=== PATIENT | female | born 1970 | race Caucasian/White ===

== ENCOUNTER 2016-12-18 11:43 | Emergency (ER) | payer MEDICAID ==
[2016-12-18 11:51] VITALS: BMI 34.5
[2016-12-18 11:54] VITALS: BP 130/85; PULSE 78; RESP 19; TEMP 98; O2SAT 98
--- NOTE | 2016-12-18 12:18 | ED PDOC ---
Arrival/HPI - General Chief Complaint: Psychiatric Evaluation Time Seen by Provider: 12/18/16 11:51 Historian: Patient - History of Present Illness Narrative History of Present Illness (Text): 12/18/16 12:13 A 46 year old female, whose past medical history includes depression with previous admissions for psych, presents to the emergency department complaining of depression. Patient reports she was in a verbal altercation with her family today. She admits to feeling depressed but denies any physical complaints. Patient denies any fever, chills, nausea, vomiting, abdominal pain, chest pain, shortness of breath, suicidal ideation, homicidal ideation, auditory or visual hallucination or any other complaints. Patient reports she has a scheduled appointment with her psychologist tomorrow. Time/Duration: Prior to Arrival Symptom Course: Unchanged Quality: Other Context: Home Past Medical History - Provider Review Nursing Documentation Reviewed: Yes - Infectious Disease Hx of Infectious Diseases: None - Cardiac Hx Cardiac Disorders: Yes - Pulmonary Hx Respiratory Disorders: No - Neurological Hx Neurological Disorder: No - HEENT Hx HEENT Disorder: No - Renal Hx Renal Disorder: No - Endocrine/Metabolic Hx Endocrine Disorders: No - Hematological/Oncological Hx Blood Disorders: No - Integumentary Hx Dermatological Disorder: No - Musculoskeletal/Rheumatological Hx Musculoskeletal Disorders: No - Gastrointestinal Hx Gastrointestinal Disorders: No - Genitourinary/Gynecological Hx Genitourinary Disorders: No - Psychiatric Hx Psychophysiologic Disorder: Yes Hx Anxiety: Yes Hx Depression: Yes Hx Substance Use: No - Surgical History Hx Section: Yes (x3) Hx Cholecystectomy: Yes - Anesthesia Hx Anesthesia: Yes Hx Anesthesia Reactions: No Family/Social History - Physician Review Nursing Documentation Reviewed: Yes Family/Social History: No Known Family HX Smoking Status: Never Smoked Hx Alcohol Use: No Hx Substance Use: No Allergies/Home Meds Allergies/Adverse Reactions: Allergies No Known Allergies Allergy (Verified 12/18/16 11:50) Home Medications: Home Meds Medication Instructions Recorded Confirmed Unobtainable 12/18/16 12/18/16 Review of Systems - Physician Review All systems were reviewed & negative as marked: Yes - Review of Systems Constitutional: absent: Fevers, Night Sweats Respiratory: absent: SOB Cardiovascular: absent: Chest Pain Gastrointestinal: absent: Abdominal Pain, Nausea, Vomiting Psychiatric: Depression. absent: Suicidal Ideation (/Homicidal ideation), Other (Auditory/Visual hallucinations) Physical Exam Vital Signs Reviewed: Yes Vital Signs Temp Pulse Resp BP Pulse Ox 12/18/16 11:53 98.0 F 78 19 130/85 98 Temperature: Afebrile Blood Pressure: Normal Pulse: Regular Respiratory Rate: Normal Appearance: Positive for: Well-Appearing, Non-Toxic, Comfortable Pain Distress: None Mental Status: Positive for: Alert and Oriented X 3, other (blunted affect) - Systems Exam Head: Present: Atraumatic, Normocephalic Pupils: Present: PERRL Extroacular Muscles: Present: EOMI Conjunctiva: Present: Normal Mouth: Present: Moist Mucous Membranes Neck: Present: Normal Range of Motion Respiratory/Chest: Present: Clear to Auscultation, Good Air Exchange. No: Respiratory Distress, Accessory Muscle Use Cardiovascular: Present: Regular Rate and Rhythm, Normal S1, S2. No: Murmurs Abdomen: Present: Normal Bowel Sounds. No: Tenderness, Distention, Peritoneal Signs Back: Present: Normal Inspection Upper Extremity: Present: Normal Inspection. No: Cyanosis, Edema Lower Extremity: Present: Normal Inspection. No: Edema Neurological: Present: GCS=15, CN II-XII Intact, Speech Normal Skin: Present: Warm, Dry, Normal Color. No: Rashes Psychiatric: Present: Alert, Oriented x 3, Normal Insight, Normal Concentration , Other (blunted affect). No: Suicidal Ideation, Homicidal Ideation Medical Decision Making ED Course and Treatment: 12/18/16 12:13 Impression: A 46 year old female with depression. Patient denies suicidal or homicidal ideation. Plan: -- PES evaluation -- Reassess and disposition Progress Notes: PES worker She aware of patient, states she will evaluate in emergency room 12/18/16 12:47 She evaluated and spoke to Dr. Brown. Patient recommeded for voluntary admission but refusing to stay because she reports that she needs to go to [facility]SI meeting tomorrow. She arranged for patient to return tomorrow for admission. Agreement that mobile crisis will go get patient tomorrow if she does not return. - Scribe Statement The provider has reviewed the documentation as recorded by the Scribe Aleida Murphy Provider Scribe Attestation: All medical record entries made by the Scribe were at my direction and personally dictated by me. I have reviewed the chart and agree that the record accurately reflects my personal performance of the history, physical exam, medical decision making, and the department course for this patient. I have also personally directed, reviewed, and agree with the discharge instructions and disposition. Disposition/Present on Arrival - Present on Arrival Any Indicators Present on Arrival: No History of DVT/PE: No History of Uncontrolled Diabetes: No Urinary Catheter: No History of Decub. Ulcer: No History Surgical Site Infection Following: None - Disposition Have Diagnosis and Disposition been Completed?: Yes Diagnosis: Depression Disposition: AGAINST MEDICAL ADVICE Disposition Time: 12:50 Patient Plan: Discharge Condition: GOOD Discharge Instructions (ExitCare): Depression (ED) Print Language: IRISH Additional Instructions: Return tomorrow for voluntary admission to psych. Follow-up with [facility]SI appt tomorrow as scheduled. Return to ED immediately if you agree to admission today. Forms: [facility] [employer] ([place])
== END 2016-12-18 13:33 | disposition left against medical advice (07) ==
LOC: ED 11:43 → MERGE 11:43 → ED 13:33
DX: F32.9 Major depressive disorder, single episode, unspecified (principal)

== ENCOUNTER 2016-12-18 14:44 | Inpatient (IN) | payer MEDICAID ==
[2016-12-18 14:59] VITALS: BMI 34.2
--- NOTE | 2016-12-18 15:22 | ED PDOC ---
Arrival/HPI - General Chief Complaint: Psychiatric Evaluation Time Seen by Provider: 12/18/16 15:09 Historian: Patient - History of Present Illness Narrative History of Present Illness (Text): 12/18/16 15:21 A 46 year old female, whose past medical history includes depression, presents to the emergency department for psych evaluation. Patient seen earlier today by me. She returns after SSI meeting concerning her benefits and now agrees with voluntary admission. Patient will be medically cleared for admission. See prior note for further information, chart found under "Sierra Guerin". Past Medical History - Provider Review Nursing Documentation Reviewed: Yes - Infectious Disease Hx of Infectious Diseases: None - Tetanus Immunization Tetanus Immunization: Up to Date, Unknown - Past Medical History Past Medical History: No Previous - Cardiac Hx Hypertension: No - Pulmonary Hx Tuberculosis: No - Neurological HX Cerebrovascular Accident: No Hx Seizures: No - HEENT Hx HEENT Disorder: No - Renal Hx Renal Disorder: No Hx Dialysis: No Hx Kidney Stones: No - Endocrine/Metabolic Hx Endocrine Disorders: No - Hematological/Oncological Hx Cancer: No - Integumentary Hx Dermatological Disorder: No - Musculoskeletal/Rheumatological Hx Falls: No - Gastrointestinal Hx Gastrointestinal Disorders: No - Genitourinary/Gynecological Hx Sexually Transmitted Diseases: No - Psychiatric Hx Depression: No Hx Substance Use: No - Surgical History Hx Section: Yes - Anesthesia Hx Anesthesia: Yes Hx Anesthesia Reactions: No - Suicidal Assessment Feels Threatened In Home Enviroment: No Family/Social History - Physician Review Nursing Documentation Reviewed: Yes Family/Social History: No Known Family HX Smoking Status: Never Smoked Hx Alcohol Use: No Hx Substance Use: No Hx Substance Use Treatment: No Allergies/Home Meds Allergies/Adverse Reactions: Allergies No Known Allergies Allergy (Verified 12/18/16 14:58) Home Medications: Home Meds Medication Instructions Recorded Confirmed Cyclobenzaprine [Flexeril] 5 mg PO DAILY PRN 10/11/13 12/18/16 Gabapentin [Gabapentin] 800 mg PO DAILY 10/11/13 12/18/16 Review of Systems - Physician Review All systems were reviewed & negative as marked: Yes - Review of Systems Constitutional: absent: Fevers, Night Sweats Respiratory: absent: SOB Cardiovascular: absent: Chest Pain Gastrointestinal: absent: Abdominal Pain, Nausea, Vomiting Psychiatric: Depression. absent: Suicidal Ideation (/homicidal ideation), Other (Auditory/Visual hallucinations) Physical Exam Vital Signs Reviewed: Yes Vital Signs Temp Pulse Resp BP Pulse Ox 12/18/16 16:30 80 18 122/70 97 12/18/16 15:01 98.2 F 83 19 121/78 95 Temperature: Afebrile Blood Pressure: Normal Pulse: Regular Respiratory Rate: Normal Appearance: Positive for: Well-Appearing, Non-Toxic, Comfortable Pain Distress: None Mental Status: Positive for: Alert and Oriented X 3 - Systems Exam Head: Present: Atraumatic, Normocephalic Pupils: Present: PERRL Extroacular Muscles: Present: EOMI Conjunctiva: Present: Normal Mouth: Present: Moist Mucous Membranes Neck: Present: Normal Range of Motion Respiratory/Chest: Present: Clear to Auscultation, Good Air Exchange. No: Respiratory Distress, Accessory Muscle Use Cardiovascular: Present: Regular Rate and Rhythm, Normal S1, S2. No: Murmurs Abdomen: Present: Normal Bowel Sounds. No: Tenderness, Distention, Peritoneal Signs Back: Present: Normal Inspection Upper Extremity: Present: Normal Inspection. No: Cyanosis, Edema Lower Extremity: Present: Normal Inspection. No: Edema Neurological: Present: GCS=15, CN II-XII Intact, Speech Normal Skin: Present: Warm, Dry, Normal Color. No: Rashes Psychiatric: Present: Alert, Oriented x 3, Suicidal Ideation Medical Decision Making ED Course and Treatment: 12/18/16 15:21 Impression: A 46 year old female with depression. Patient placed on 1 to 1 monitor. Plan: -- Chest xray -- EKG -- Labs -- Urinalysis -- Reassess and disposition Progress Notes: 12/18/16 15:21 Spoke with PES worker She, will evaluate patient at bedside. 12/18/16 16:16 EKG shows NSR at 82bpm with normal intervals and no ST changes 12/18/16 17:33 Cxray negative. UA shows negative leukocytes and nitrates, but 10-15 wbc. Patient denies dysuria and will not treat asymptomatic not female. UA positive for hematuria. Patient admits to recent vaginal spotting and patient will need outpatient evaluation for painless hematuria vs vaginal bleeding. Patient is otherwise medically cleared for psychiatric admission. - Lab Interpretations Lab Results: 12/18/16 16:00 12/18/16 16:00 Lab Results 12/18/16 16:10: Urine Opiates Screen Negative, Urine Methadone Screen Negative, Ur Barbiturates Screen Negative, Ur Phencyclidine Scrn Negative, Ur Amphetamines Screen Negative, U Benzodiazepines Scrn Negative, U Oth Cocaine Metabols Negative, U Cannabinoids Screen Negative 12/18/16 16:10: Urine Color Yellow, Urine Appearance Sl cloudy, Urine pH 6.0, Ur Specific Raymond >= 1.030, Urine Protein 30 H, Urine Glucose (UA) Negative, Urine Ketones 40 H, Urine Blood Large H, Urine Nitrate Negative, Urine Bilirubin Negative, Urine Urobilinogen 0.2, Ur Leukocyte Esterase Negative, Urine RBC Tntc, Urine WBC 10 - 15, Ur Epithelial Cells 6 - 8, Urine Bacteria Mod 12/18/16 16:00: Alcohol, Quantitative < 10 12/18/16 16:00: Sodium 141, Potassium 4.0, Chloride 106, Carbon Dioxide 24, Anion Gap 15, BUN 11, Creatinine 0.7, Est GFR ( Amer) > 60, Est GFR (Non- Af Amer) > 60, Random Glucose 91, Calcium 9.4, Total Bilirubin 0.4, AST 24, ALT 35, Alkaline Phosphatase 72, Total Protein 7.0, Albumin 4.2, Globulin 2.8, Albumin/Globulin Ratio 1.5 12/18/16 16:00: WBC 4.1 L, RBC 4.02, Hgb 12.3, Hct 36.4, MCV 90.5, MCH 30.6, MCHC 33.8, RDW 12.7, Plt Count 221, MPV 9.7, Gran % 69.3 H, Lymph % (Auto) 24.8 , [place] % (Auto) 5.7, Eos % (Auto) 0.2 L, Baso % (Auto) 0.0, Gran # 2.82, Lymph # 1.0 L, Teton # 0.2, Eos # 0.0, Baso # 0.00 - RAD Interpretation Radiology Orders: 12/18/16 15:19 CHEST PORTABLE [RAD] Stat - Scribe Statement The provider has reviewed the documentation as recorded by the Scribe Aleida Murphy Provider Scribe Attestation: All medical record entries made by the Scribe were at my direction and personally dictated by me. I have reviewed the chart and agree that the record accurately reflects my personal performance of the history, physical exam, medical decision making, and the department course for this patient. I have also personally directed, reviewed, and agree with the discharge instructions and disposition. Disposition/Present on Arrival - Present on Arrival Any Indicators Present on Arrival: No History of DVT/PE: No History of Uncontrolled Diabetes: No Urinary Catheter: No History of Decub. Ulcer: No History Surgical Site Infection Following: None - Disposition Have Diagnosis and Disposition been Completed?: Yes Diagnosis: Depressed, Suicidal ideation Disposition: HOSPITALIZED Disposition Time: 17:34 Patient Plan: Admission Patient Problems: Current Active Problems Problem Status Onset Depressed Acute Suicidal ideation Acute Condition: FAIR
[2016-12-18 16:11] LABS: EOS % 0.2 % (1.5-5.0); GRAN # 2.82 (1.4-6.5); GRAN % 69.3 % (50.0-68.0); HEMATOCRIT 36.4 % (36.0-48.0); LYMPH % 24.8 % (22.0-35.0); MEAN CELL VOLUME 90.5 fl (80.0-105.0); MEAN CORPUSCULAR HEMOGLOBIN 30.6 pg (25.0-35.0); MEAN CORPUSCULAR HGB CONC 33.8 g/dl (31.0-37.0); MEAN PLATELET VOLUME 9.7 fl (7.0-11.0); MONO # 0.2 (0.1-0.6); MONO % 5.7 % (1.0-6.0); RED CELL DISTRIBUTION WIDTH 12.7 % (11.5-14.5); WHITE BLOOD COUNT 4.1 10^3/ul (4.5-11.0)
[2016-12-18 16:25] LABS: ALB/GLOB RATIO 1.5 (1.1-1.8); ALKALINE PHOSPHATASE 72 U/L (38-133); ALT/SGPT 35 U/L (7-56); AST/SGOT 24 U/L (15-39); BILIRUBIN,TOTAL 0.4 mg/dL (0.2-1.3); BLOOD UREA NITROGEN 11 mg/dL (7-21); CALCIUM 9.4 mg/dL (8.4-10.5); CARBON DIOXIDE 24 mmol/L (21-33); CHLORIDE 106 mmol/L (98-107); GFR AFRICAN-AMERICAN > 60; GLUCOSE,RANDOM 91 mg/dL (70-110); SODIUM 141 mmol/L (132-148)
[2016-12-18 16:38] LABS: URINE BILIRUBIN NEGATIVE (NEGATIVE); URINE BLOOD LARGE (NEGATIVE); URINE GLUCOSE (UA) NEGATIVE (NEGATIVE); URINE KETONE 40 mg/dL (NEGATIVE); URINE LEUKOCYTE ESTERASE NEGATIVE Leu/uL (NEGATIVE); URINE PROTEIN 30 mg/dL (<30 mg/dL); URINE UROBILINOGEN 0.2 E.U./dL (<1 E.U./dL)
[2016-12-18 16:40] LABS: URINE APPEARANCE SL CLOUDY (CLEAR); URINE COLOR YELLOW (YELLOW)
[2016-12-18 16:54] LABS: URINE BACTERIA MOD (NEG); URINE RBC TNTC /hpf (0-2)
--- NOTE | 2016-12-18 19:06 | CARD ---
APPROVED REPORT EKG Measurement Heart [id number] CT [id number] <Conclusion> Normal sinus rhythm Normal ECG
[2016-12-18] MEDS ORDERED: Alum-Mag Hydrox-Simethicone Susp (30 mL) PO PRN (21:41)
[2016-12-18] MEDS ORDERED: Magnesium Hydroxide Susp 30 ml UD PO PRN (21:41)
--- NOTE | 2016-12-19 01:12 | PCM.BM ---
<Shelli Wright - Last Filed: 12/19/16 01:15> Treatment Plan Problems - Problems identified on initial assessmt AUDITORY HALLUCINATION Date Initiated: 12/18/16 Time Initiated: 22:00 Status: Active DEPRESSION Date Initiated: 12/18/16 Time Initiated: 22:00 Assessment reference: NA Status: Active Treatment assets and liabiliti Patient Assests: cooperative, motivated, self-reliant, ADL independent, physically healthy, good support system, negotiates basic needs, cognitively intact Patient Liabilities: financial problems - Milieu Protocol Maintain good personal hygiene: daily Encourage regular showers, every shift Remind patient to perform daily oral care, every shift Assist patient to perform ADL's Maintain personal safety: every shift Educate patient to report safety concerns to staff, every shift Monitor environment for contraband/sharps Medication safety: Monitor for expected outcome, potential side effects: every shift, Assess barriers to learning: every shift, Assess readiness for medication education: every shift Family Contact Family involvement: Family/SO is involved Discharge/Continuing Care - Education Needs Education Needs: Patient Medication, Patient Diagnosis/Disease Process, Patient Placement options, Patient Activities of Daily Living, Patient Nutrition, Patient Health Practices/Safety, Patient Aftercare Safety Plan - Discharge Discharge Criteria: Tolerates medication w/o severe side effects, Free of Homicidal thoughts, Free of paranoid thoughts, Normal sleep pattern, Ability to care for self, Reduction of target symptoms <Luna May Y - Last Filed: 12/19/16 13:11> Family Contact Family contact: Patient agrees to contact - Goals for Treatment Patient goals for treatment: "To feel good and to feel happy." <Stephanie Donaldson - Last Filed: 12/19/16 16:42> - Diagnosis (1) MDD (major depressive disorder) Status: Acute Interventions: 12/19/16 16:42 Psychoeducation Psychopharmacology/adjustment of medications as needed/ monitoring possible side effects Evaluate pt on daily basis Compliance with medications and follow up appointments Suicide and homicide risk assessment and prevention Relapse prevention Reduction of symptoms Improve functional status Family intervention As outpatient: cognitive behavioral therapy/interpersonal psychotherapy/ psychodynamic psychotherapy/problem-solving therapy (2) PTSD (post-traumatic stress disorder) Status: Acute Interventions: 12/19/16 16:42 Psychoeducation Psychopharmacology/adjustment of medications as needed/ monitoring possible side effects Evaluate pt on daily basis Compliance with medications and follow up appointments Suicide and homicide risk assessment and prevention, coping strategies, safety plan Reduction of symptoms Relaxation techniques and breathing exercises Improve functional status Family intervention As outpatient: cognitive behavioral therapy <Ale Benton - Last Filed: 12/20/16 16:25>
--- NOTE | 2016-12-19 04:50 | CON ---
DATE: HISTORY OF PRESENT ILLNESS: I was called to see them being store person for the emergency room to do a consult on patient Sierra Rice. I saw her in the psychiatric floor in her room in 518. She tells me in broken Albanian that she has been depressed and has been feeling well. She voluntary admits herself that she is not feeling well and she said she needs help. PAST MEDICAL HISTORY: She has had palpitations in the past. She has had urinary tract infections in the past and she has been depressed. PAST SURGICAL HISTORY: She has had a . FAMILY HISTORY: No family history to speak up that she knows of. SOCIAL HISTORY: Never smoked, no alcohol, no drugs. ALLERGIES: NO KNOWN DRUG ALLERGIES. MEDICATIONS: She has taken Flexeril and gabapentin for some chronic back pain issues. REVIEW OF SYSTEMS: Unchanged in vision. No change in hearing. No sore throat. Denies any palpitations by time to time, but known now and no chest pain or shortness of breath. No cough, no sputum. No abdominal pain. No nausea. No vomiting. No numbness or tingling. No headache. No extremity issues. No urinary tract issues. Does have a history of depression. She does not have any suicidal ideation. She does not feel up, she feels down lonely. PHYSICAL EXAMINATION: GENERAL: She is well appearing, nontoxic, comfortable, alert and oriented x3. VITAL SIGNS: 98.2 temperature, 83 pulse, 19 respiratory rate, 121/78 blood pressure, 95% O2 sat to 97% O2 sat on room air. HEENT: Head is atraumatic normocephalic. Extraocular muscles are intact. Pupils equal and reactive to light and accommodation. Throat is moist. NECK: Supple. HEART: Regular rate, normal S1 and S2. LUNGS: Clear to auscultation bilaterally. No wheezes, no rhonchi, no rales. ABDOMEN: Soft, nontender. Positive bowel sounds. No guarding and no rebound. No CVA tenderness. EXTREMITIES: No edema. SKIN: For the most part is intact. No rashes or ulcers appreciated. NEUROLOGIC: GCS is 15. Cranial nerves II through XII grossly intact. Alert and oriented x3. Depressed. Thyroid midline. No palpable appreciable lymphadenopathy. LABORATORY DATA: She had a 4.1 white count, 12.3 hemoglobin, 36.4, hematocrit with a 221 platelets. A 141 sodium, potassium 4, BUN 11, creatinine 0.7. , GFR is greater than 60, sugar is 91, calcium is 9.4, total bilirubin is 0.4, AST is 24, ALT is 35, alkaline phosphatase is 72. Total protein is 7, albumin is 4.2, globulin 2.8. Urine shows 30 protein, 40 ketones, large blood and she has minor bacteria. Start her on some Bactrim DS. Her urine drug screen was negative. Chest x-ray is pending. EKG is normal sinus rhythm. ASSESSMENT AND PLAN: She is here for depression, urinary tract infection. She tells me no palpitations now, but when she came in she had palpitations and her pulse was good in 80s and it is regular. We will put her on Bactrim DS and antibiotic twice a day for the urinary tract infection. We will follow up psychiatry and their treatment. She is currently on Ativan, Cymbalta, Sonata, Tylenol p.r.n. New Blackmon DO
[2016-12-19 08:00] LABS: CHOLESTEROL 155 mg/dL (130-200); GLUCOSE,FASTING 92 mg/dL (65-110)
[2016-12-19 08:20] LABS: FREE T4 1.07 ng/dL (0.78-2.19)
[2016-12-19 08:34] LABS: THYROID STIMULATING HORMONE 2.74 mIU/mL (0.46-4.68)
--- NOTE | 2016-12-19 08:43 | RAD ---
HISTORY: psych COMPARISON: None FINDINGS: LUNGS: No active pulmonary disease. Second view was obtained the 1st few had an apparent cellphone partially obscuring the right hemithorax. No infiltrate PLEURA: No significant pleural effusion identified, no pneumothorax apparent. CARDIOVASCULAR: Normal. OSSEOUS STRUCTURES: No significant abnormalities. VISUALIZED UPPER ABDOMEN: Normal. OTHER FINDINGS: None. IMPRESSION: No active disease.
[2016-12-19] MEDS: Tmp-Smz 800 mg-160 mg DS Tab PO SCH ×2 (08:45→16:00)
--- NOTE | 2016-12-19 11:20 | PN ---
SUBJECTIVE: The patient is comfortably resting in the bed in the psychiatric floor. She tells me she did not sleep much at all, if any last night. Still feeling depressed. She has a urinary tract infection, is on antibiotics for that. Otherwise, no acute distress. She is calm. She is talking to me. She is on Ativan, Bactrim DS, Cymbalta, MiraLax, milk of magnesia, Sonata, and Tylenol. PHYSICAL EXAMINATION VITAL SIGNS: She has a 97.8 temperature, 81 pulse, 143/80 blood pressure, 16 respiratory rate, 92% to 97% O2 sat on room air. HEENT: Head is atraumatic, normocephalic. HEART: Regular rate. LUNGS: Clear to auscultation. ABDOMEN: Soft, obese. EXTREMITIES: No edema. LABORATORY DATA: She has 4.1 white count, 12.3 hemoglobin, 221 platelets. Sodium 141, potassium 4, BUN 11, creatinine 0.7, GFR greater than 60, sugars 91, calcium 9.4, total bili is 0.4. AST is 24, ALT is 35, alk phos 72, total protein 7. Urine has moderate bacteria. She is on antibiotics. Her tox screen was negative. PLAN: I encouraged her to participate in psychiatric groups and discuss with the psychiatrist about her depression and her insomnia for medication changes. She understands that and hopefully she will improve while she is here. I encouraged her. I am going to watch her closely, waiting for labs to come back this morning. New Blackmon DO
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
[2016-12-20] MEDS: Tmp-Smz 800 mg-160 mg DS Tab PO SCH ×2 (09:25→17:28)
--- NOTE | 2016-12-20 13:25 | PN ---
DATE: SUBJECTIVE: I saw Sierra resting comfortably in bed. She slept all night. She feels better. The other night, she could not sleep, so that is a big improvement and she feels better about that. She is eating and trying to participate. She is on Ativan, Bactrim for urinary tract infection, Desyrel, Maalox, milk of magnesia, Prozac, and Tylenol. PHYSICAL EXAMINATION: VITAL SIGNS: 97.1 temperature, 72 pulse, 134/60 blood pressure, 17 respiratory rate, and 99% O2 sat on room air. HEENT: Head; atraumatic and normocephalic. Throat moist. NECK: Supple. HEART: Regular rate. LUNGS: Clear to auscultation. ABDOMEN: Soft. Positive bowel sounds. EXTREMITIES: No edema. LABORATORY DATA: She had a 4.1 white count, 12.3 hemoglobin, and 221 platelets. Last blood sugar was 92. TSH was 2.74. Triglycerides are 169, level high. BUN is 11 and creatinine is 0.7. Urine was moderate. Urine drug screen was clean. Negative RPR. ASSESSMENT AND PLAN: Adjusting her psychiatric medications. Overall, I think she is doing well. She is improving. I am glad she slept last night with trazodone. Continue as per psychiatry. Hopefully, she will continue to improve. She had urinary tract infection and depression. As per psychiatry, we will follow. Thank you very much. New Blackmon DO
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
[2016-12-21] MEDS: Tmp-Smz 800 mg-160 mg DS Tab PO SCH ×2 (08:48→17:23)
--- NOTE | 2016-12-21 13:35 | PN ---
SUBJECTIVE: I saw the patient in the psychiatric floor. She slept very well. She is comfortable in bed, looking forward to breakfast. She is in good spirits. She is feeling better. She is on Ativan, Bactrim, Desyrel, Maalox, milk of magnesia, Prozac, and Tylenol. PHYSICAL EXAMINATION: VITAL SIGNS: Temperature 98.2, pulse 82, blood pressure 138/71, respiratory rate 16 and 99% O2 sat on room air. HEENT: Head; atraumatic and normocephalic. Throat moist. NECK: Supple. HEART: Regular rate. LUNGS: Clear to auscultation. ABDOMEN: Soft. EXTREMITIES: No edema. LABORATORY DATA: Last lab on , she did well. TSH is 2.74. ASSESSMENT AND PLAN: She is being seen by psychiatry and adjusting her medications. I do see signs of improvement. Continue with aggressive treatment by psychiatry. She is here for severe depression and anxiety. She had urinary tract infection, on oral antibiotics. Encouraged her to take lot of fluids and participate in groups. We will follow. New Blackmon DO
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
[2016-12-22 07:06] VITALS: BP 139/70; PULSE 81; RESP 19; TEMP 98.3; O2SAT 96
[2016-12-22] MEDS: Tmp-Smz 800 mg-160 mg DS Tab PO SCH (09:40)
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
--- NOTE | 2016-12-22 13:08 | PN ---
DATE: SUBJECTIVE: I went to go to see her in the room, she is taking a shower, we spoke with the door. She is comfortable, doing better, feeling better, slept well, taking the medications, better spirits. MEDICATIONS: She is on Ativan, Bactrim, Desyrel, Maalox, milk of magnesia, Prozac, and Tylenol. PHYSICAL EXAMINATION VITAL SIGNS: 98.3 temperature, 81 pulse, 139/78 blood pressure,18 respiratory rate, and 96% O2 sat on room air. LABORATORY DATA: Her labs were good on when she came in, thyroid was good. ASSESSMENT AND PLAN: I understand she is being discharged today as per psychiatry which is great, I think she is improved, I encouraged to take her medications, finish the antibiotics with the urinary tract infection. Follow with the primary care doctor. She was here for urinary tract infection and depression. [place] DO
== END 2016-12-22 12:45 | disposition home or self-care (01) | DRG 426 ==
LOC: ED 14:44 → ERH 17:34 → PSYC 18:32
PROVIDERS: ADMIT Psychiatry & Neurology Psychiatry; ATTEND Psychiatry & Neurology Psychiatry
DX: F32.9 Major depressive disorder, single episode, unspecified (principal); N39.0 Urinary tract infection, site not specified; F43.10 Post-traumatic stress disorder, unspecified; G47.00 Insomnia, unspecified

== ENCOUNTER 2018-04-23 18:44 | Emergency (ER) | payer MEDICAID ==
--- NOTE | 2018-04-23 20:39 | ED PDOC ---
Arrival/HPI - General Chief Complaint: Abnormal Skin Integrity Time Seen by Provider: 04/23/18 18:46 Historian: Patient - History of Present Illness Narrative History of Present Illness (Text): 04/23/18 21:10 48-year-old female presents today with rash for the past 3 weeks. Patient states the rash started on the left upper arm and over the past 3 weeks has spread to the chest, bilateral forearms and right upper arm. Patient denies new soaps lotions detergents or perfumes. Patient states that she did take 3 pills of unknown antibiotics about 1 week prior to onset of the rash. Patient denies chest pain or shortness of breath. Denies difficulty breathing or swallowing. Patient states she used a medication called gold blackwell without improvement. Patient states the rash is pruritic. She denies pain. Patient states she is also noticed a rash to the abdomen. Patient denies rash to the lower extremities. No other complaints Time/Duration: > week (3) Quality: Other (itchy) Past Medical History - Provider Review Nursing Documentation Reviewed: Yes - Travel History Have you recently traveled outside [place] w/in the past 3 mons?: No - Infectious Disease Hx of Infectious Diseases: None - Tetanus Immunization Tetanus Immunization: Up to Date, Unknown - Past Medical History Past Medical History: No Previous - Cardiac Hx Cardiac Disorders: Yes - Pulmonary Hx Respiratory Disorders: No - Neurological Hx Neurological Disorder: No - HEENT Hx HEENT Disorder: No - Renal Hx Renal Disorder: No - Endocrine/Metabolic Hx Endocrine Disorders: No - Hematological/Oncological Hx Blood Disorders: No - Integumentary Hx Dermatological Disorder: No - Musculoskeletal/Rheumatological Hx Musculoskeletal Disorders: No - Gastrointestinal Hx Gastrointestinal Disorders: No - Genitourinary/Gynecological Hx Genitourinary Disorders: No - Psychiatric Hx Psychophysiologic Disorder: Yes Hx Depression: Yes Hx Substance Use: No - Surgical History Hx Section: Yes (x3) - Anesthesia Hx Anesthesia: Yes Hx Anesthesia Reactions: No - Suicidal Assessment Feels Threatened In Home Enviroment: No Family/Social History - Physician Review Nursing Documentation Reviewed: Yes Family/Social History: Unknown Family HX Smoking Status: Never Smoked Hx Alcohol Use: No Hx Substance Use: No Hx Substance Use Treatment: No Allergies/Home Meds Allergies/Adverse Reactions: Allergies No Known Allergies Allergy (Verified 04/23/18 20:06) Review of Systems - Review of Systems Constitutional: absent: Fatigue, Fevers Respiratory: absent: SOB, Cough Cardiovascular: absent: Chest Pain, Palpitations Gastrointestinal: absent: Abdominal Pain, Nausea, Vomiting Musculoskeletal: absent: Arthralgias, Back Pain, Neck Pain Skin: Rash, Pruritis Neurological: absent: Headache, Dizziness Psychiatric: absent: Anxiety, Depression Physical Exam Vital Signs Reviewed: Yes Vital Signs Temp Pulse Resp BP Pulse Ox 04/23/18 20:05 98.4 F 86 18 171/82 H 99 Temperature: Afebrile Blood Pressure: Hypertensive Pulse: Regular Respiratory Rate: Normal Appearance: Positive for: Well-Appearing, Non-Toxic, Comfortable Pain Distress: None Mental Status: Positive for: Alert and Oriented X 3 - Systems Exam Head: Present: Atraumatic Mouth: Present: Moist Mucous Membranes Neck: Present: Normal Range of Motion Respiratory/Chest: Present: Clear to Auscultation, Good Air Exchange. No: Respiratory Distress, Accessory Muscle Use Cardiovascular: Present: Regular Rate and Rhythm, Normal S1, S2. No: Murmurs Abdomen: No: Tenderness Back: Present: Normal Inspection Upper Extremity: Present: Normal ROM Lower Extremity: Present: Normal ROM Neurological: Present: GCS=15, Speech Normal Skin: Present: Warm, Dry, Rashes (there is erythematous plaques noted to the left and right upper arms and anterior chest. there is a dry erythematous plaque noted to the forearms bilaterally. non tender. + blanching.), Normal Color Psychiatric: Present: Alert, Oriented x 3 Medical Decision Making ED Course and Treatment: 04/23/18 21:09 Patient is nontoxic well-appearing in no distress with stable vital signs no angioedema. Lungs are clear to auscultation bilaterally there is no wheezing noted. The airway is patent Benadryl po prednisone po Pepcid 20 mg po Patient reassessment: After medications patient is feeling much better the lungs are clear to auscultation bilaterally the airway is patent the patient is speaking in full sentences. I advised taking Benadryl every 6 hours as needed for itch as well as prednisone daily x4 days. Advised patient to follow up with primary care physician within the next 2 days and return if symptoms worsen persist or if new symptoms develop Patient verbalizes understanding of discharge instructions and need for immediate followup. impression; rash Benadryl every 6 hours as needed for itch Prednisone once daily x4 days Pepcid one tablet daily Follow up with the primary care physician within the next 2 days follow up with the fitter up within the next 2 days. Return if symptoms worsen persist or if new symptoms develop: Shortness of breath, feeling of throat closing, difficulty speaking or any other concerning symptoms develop Disposition/Present on Arrival - Present on Arrival Any Indicators Present on Arrival: No History of DVT/PE: No History of Uncontrolled Diabetes: No Urinary Catheter: No History of Decub. Ulcer: No History Surgical Site Infection Following: None - Disposition Have Diagnosis and Disposition been Completed?: Yes Diagnosis: Rash Disposition: HOME/ ROUTINE Disposition Time: 20:39 Patient Plan: Discharge Patient Problems: Current Active Problems Problem Status Onset Rash Acute Condition: GOOD Discharge Instructions (ExitCare): Skin Rash (DC) Additional Instructions: Benadryl every 6 hours as needed for itch Prednisone once daily x4 days Pepcid one tablet daily Follow up with the primary care physician within the next 2 days follow up with the fitter up within the next 2 days. Return if symptoms worsen persist or if new symptoms develop: Shortness of breath, feeling of throat closing, difficulty speaking or any other concerning symptoms develop Prescriptions: DiphenhydrAMINE [Benadryl] 25 mg PO Q6H #20 cap Famotidine [Pepcid] 20 mg PO DAILY #30 tab predniSONE [predniSONE Tab] 2 tab PO DAILY #8 tab Referrals: Vito Tyson MD [Staff Provider] - Follow up with primary Christine Durand MD [Medical Doctor] - Follow up with primary [facility] [Outside] - Follow up with primary Forms: [employer] ([place]), WORK NOTE
[2018-04-23 20:44] VITALS: BP 171/82; PULSE 86; RESP 18; TEMP 98.4; BMI 30.7
[2018-04-23 21:55] VITALS: O2SAT 98
== END 2018-04-23 21:54 | disposition home or self-care (01) ==
LOC: ED 18:44
DX: R21 Rash and other nonspecific skin eruption (principal)

== ENCOUNTER 2018-09-12 11:48 | Observation (INO) | payer MEDICAID ==
[2018-09-12 11:49] VITALS: BMI 34.5
[2018-09-12 12:05] VITALS: TEMP 97.8
--- NOTE | 2018-09-12 12:27 | ED PDOC ---
Arrival/HPI - General Chief Complaint: Cough, Cold, Congestion Time Seen by Provider: 09/12/18 12:10 Historian: Patient - History of Present Illness Narrative History of Present Illness (Text): 09/12/18 12:22 A 48 year old male, who denies any past medical history, presents to the emergency department with a complaint of coughing up blood and 2 week duration cough. Patient notes that she noticed blood as she coughed this morning. The patient states that she has not traveled out of the country or been exposed to any sick contacts. Patient is a non- smoker/ non- drinker. The patient's daughter, at bedside notes that the coughing occurs mostly at night. The patient denies fevers, chills, headache, dizziness, chest pain, shortness of breath, dyspnea on exertion, abdominal pain, nausea, vomiting, diarrhea, back pain, neck pain, urinary/bowel changes, or any other complaint. Time/Duration: Other (2 weeks) Symptom Onset: Sudden Symptom Course: Unchanged Activities at Onset: Rest, Light Context: Home Past Medical History - Provider Review Nursing Documentation Reviewed: Yes - Infectious Disease Hx of Infectious Diseases: None - Tetanus Immunization Tetanus Immunization: Up to Date, Unknown - Past Medical History Past Medical History: No Previous - Cardiac Hx Cardiac Disorders: Yes - Pulmonary Hx Respiratory Disorders: No - Neurological Hx Neurological Disorder: No - HEENT Hx HEENT Disorder: No - Renal Hx Renal Disorder: No - Endocrine/Metabolic Hx Endocrine Disorders: No - Hematological/Oncological Hx Blood Disorders: No - Integumentary Hx Dermatological Disorder: No - Musculoskeletal/Rheumatological Hx Musculoskeletal Disorders: No - Gastrointestinal Hx Gastrointestinal Disorders: No - Genitourinary/Gynecological Hx Genitourinary Disorders: No - Psychiatric Hx Psychophysiologic Disorder: Yes Hx Depression: Yes Hx Substance Use: No - Surgical History Hx Section: Yes (x3) - Anesthesia Hx Anesthesia: Yes Hx Anesthesia Reactions: No Hx Malignant Hyperthermia: No - Suicidal Assessment Feels Threatened In Home Enviroment: No Family/Social History - Physician Review Nursing Documentation Reviewed: Yes Family/Social History: No Known Family HX Smoking Status: Never Smoked Hx Alcohol Use: No Hx Substance Use: No Hx Substance Use Treatment: No Allergies/Home Meds Allergies/Adverse Reactions: Allergies No Known Allergies Allergy (Verified 09/12/18 12:04) Review of Systems - Physician Review All systems were reviewed & negative as marked: Yes - Review of Systems Constitutional: absent: Fevers Respiratory: Other (Hemoptysis). absent: SOB, Cough Cardiovascular: absent: Chest Pain, WILCOX Gastrointestinal: absent: Abdominal Pain, Stool Changes, Diarrhea, Nausea, Vomiting Genitourinary Female: absent: Urine Output Changes Musculoskeletal: absent: Back Pain, Neck Pain Neurological: absent: Headache, Dizziness Physical Exam Vital Signs Reviewed: Yes Vital Signs Temp Pulse Resp BP Pulse Ox 09/12/18 12:00 97.8 F 71 18 136/74 96 Temperature: Afebrile Blood Pressure: Normal Pulse: Regular Respiratory Rate: Normal Appearance: Positive for: Well-Appearing, Non-Toxic, Comfortable Pain Distress: None Mental Status: Positive for: Alert and Oriented X 3 - Systems Exam Head: Present: Atraumatic, Normocephalic Pupils: Present: PERRL Extroacular Muscles: Present: EOMI Conjunctiva: Present: Normal Mouth: Present: Moist Mucous Membranes Neck: Present: Normal Range of Motion Respiratory/Chest: Present: Clear to Auscultation, Good Air Exchange. No: Respiratory Distress, Accessory Muscle Use Cardiovascular: Present: Regular Rate and Rhythm, Normal S1, S2. No: Murmurs Abdomen: No: Tenderness, Distention, Peritoneal Signs Back: Present: Normal Inspection Upper Extremity: Present: Normal Inspection. No: Cyanosis, Edema Lower Extremity: Present: Normal Inspection. No: Edema Neurological: Present: GCS=15, CN II-XII Intact, Speech Normal Skin: Present: Warm, Dry, Normal Color. No: Rashes Psychiatric: Present: Alert, Oriented x 3, Normal Insight, Normal Concentration Medical Decision Making ED Course and Treatment: 09/12/18 12:29 Impression: A 48 year old female presents to the emergency department for further evaluation of a 2 week cough and hemoptysis that started today. Plan: -- Chest X-ray -- AFB Culture -- Labs -- Reassess and disposition Progress Notes: Chest X-ray Dictator : Ronald Torres MD Report Date : 09/12/2018 13:14:53 IMPRESSION: No active disease. 09/12/18 14:03: Case discussed in detail with hospitalist who requests Chest CT before admitting. 09/12/18 16:10 CT Chest Shows: IMPRESSION: Unremarkable contrast enhanced CT of the chest. - Lab Interpretations I have reviewed the lab results: Yes - Scribe Statement The provider has reviewed the documentation as recorded by the Scribe Barbara Cedillo Provider Scribe Attestation: All medical record entries made by the Scribe were at my direction and personally dictated by me. I have reviewed the chart and agree that the record accurately reflects my personal performance of the history, physical exam, medical decision making, and the department course for this patient. I have also personally directed, reviewed, and agree with the discharge instructions and disposition. Disposition/Present on Arrival - Present on Arrival Any Indicators Present on Arrival: No History of DVT/PE: No History of Uncontrolled Diabetes: No Urinary Catheter: No History of Decub. Ulcer: No History Surgical Site Infection Following: None - Disposition Have Diagnosis and Disposition been Completed?: Yes Diagnosis: Hemoptysis Disposition: HOSPITALIZED Disposition Time: 17:01 Isolation: Airborne Patient Plan: Admission Condition: GOOD
[2018-09-12 13:05] LABS: BASO # 0.01 K/mm3 (0.0-2.0); BASO % 0.3 % (0.0-3.0); EOS % 0.5 % (1.5-5.0); HEMOGLOBIN 11.1 g/dL (12.0-16.0); LYMPH # 1.2 (1.2-3.4); MEAN CELL VOLUME 90.9 fl (80.0-105.0); MEAN CORPUSCULAR HGB CONC 31.9 g/dl (31.0-37.0); MEAN PLATELET VOLUME 9.6 fl (7.0-11.0); MONO # 0.2 (0.1-0.6); MONO % 6.2 % (1.0-6.0); RBC 3.83 10^6/uL (3.5-6.1); RED CELL DISTRIBUTION WIDTH 12.9 % (11.5-14.5); WHITE BLOOD COUNT 3.9 10^3/uL (4.5-11.0)
[2018-09-12 13:09] LABS: ALB/GLOB RATIO 1.2 (1.1-1.8); ALBUMIN 3.9 g/dL (3.0-4.8); ALT/SGPT 36 U/L (7-56); AST/SGOT 26 U/L (14-36); BLOOD UREA NITROGEN 9 mg/dL (7-21); GFR NON-AFRICAN AMERICAN > 60; INR 1.01; PARTIAL THROMBOPLASTIN TIME 31.7 Seconds (26.9-38.3); PROTHROMBIN TIME 11.4 SECONDS (9.4-12.5)
--- NOTE | 2018-09-12 13:18 | RAD ---
Date of service: 09/12/2018 HISTORY: r/o pneumonia or Cavitary lesion COMPARISON: 12/18/2016 TECHNIQUE: Chest PA and lateral views FINDINGS: LUNGS: No active pulmonary disease. PLEURA: No significant pleural effusion identified. No pneumothorax apparent. CARDIOVASCULAR: No aortic atherosclerotic calcification present. Normal cardiac size. No pulmonary vascular congestion. OSSEOUS STRUCTURES: No significant abnormalities. VISUALIZED UPPER ABDOMEN: Normal. OTHER FINDINGS: None. IMPRESSION: No active disease.
[2018-09-12] MEDS ORDERED: Iohexol 350 MG/100 ML VIAL ONE (15:46)
--- NOTE | 2018-09-12 16:14 | CT ---
Date of service: 09/12/2018 PROCEDURE: CT Chest with contrast HISTORY: r/o cavitary lesion COMPARISON: None available. TECHNIQUE: Contiguous axial images were obtained through the chest with intravenous contrast enhancement. Sagittal and coronal reconstructions were performed. IV contrast: 100 cc of Omni 350 Radiation dose: Total exam DLP = 322.8 mGy-cm. This CT exam was performed using one or more of the following dose reduction techniques: Automated exposure control, adjustment of the mA and/or kV according to patient size, and/or use of iterative reconstruction technique. FINDINGS: LUNGS: Clear lungs. Visualized airway clear. MEDIASTINUM: Unremarkable thoracic aorta. No aneurysm or dissection. Normal sized heart. Main pulmonary artery unremarkable. No vascular congestion. No lymphadenopathy. No aortic atherosclerotic calcification or mural plaque present. PLEURA: There is a minimal area of pleural thickening at the right lung base. BONES: No fracture. No destructive lesion. UPPER ABDOMEN: Grossly unremarkable. OTHER FINDINGS: None. IMPRESSION: Unremarkable contrast enhanced CT of the chest.
--- NOTE | 2018-09-12 18:54 | CP.PCM.HP ---
<Corbin Scanlon - Last Filed: 09/13/18 06:47> History of Present Illness - History of Present Illness History of Present Illness: H&P for Hospitalist Dr. Elizabeth Scanlon PGY2 Chief complaint: Productive cough with streaks of blood HPI: Patient is a 48 S[place] F with a past medical history of depression and anxiety with complaints of productive cough with streaks of blood who presents after 2 weeks of coughing. Patient states that she first noticed the blood tinged sputum last night which continued throughout the time whenever she would cough up phlegm. Patient states has never had this before. States she has not traveled outside of the country in over 15 years. She states that she has a brother who states he had tuberculosis 3 years ago. Patient denies recent travel, fevers, chills, abdominal pain, nausea, vomiting, chest pain, back pain, weight loss, night sweats, headaches, dizziness. PMD: Dr. Engle Past medical history: Depression, anxiety Allergies:NKDA Surgical History: 3 c-sections Family History: Brother with TB Social History: denies tobacco, alcohol, or drug use Medications: States she only takes medications for depression and anxiety Labs: WBC 3.9, H&H 11.1&34.8, Na 140, K 4.2, BUN/Cr 9/0.8, Ca 9.0, AST 26, ALT 36, CRP 2.34 CT chest: unremarkable CXR:no active disease Present on Admission - Present on Admission Any Indicators Present on Admission: No Review of Systems - Review of Systems All systems: reviewed and no additional remarkable complaints except (what is stated in HPI) Past Patient History - Infectious Disease Hx of Infectious Diseases: None - Tetanus Immunizations Tetanus Immunization: Up to Date, Unknown - Past Medical History & Family History Past Medical History?: Yes - Past Social History Smoking Status: Never Smoked - CARDIAC Hx Cardiac Disorders: Yes - PULMONARY Hx Respiratory Disorders: No - NEUROLOGICAL Hx Neurological Disorder: No - HEENT Hx HEENT Problems: No - RENAL Hx Chronic Kidney Disease: No - ENDOCRINE/METABOLIC Hx Endocrine Disorders: No - HEMATOLOGICAL/ONCOLOGICAL Hx Blood Disorders: No - INTEGUMENTARY Hx Dermatological Problems: No - MUSCULOSKELETAL/RHEUMATOLOGICAL Hx Musculoskeletal Disorders: No - GASTROINTESTINAL Hx Gastrointestinal Disorders: No - GENITOURINARY/GYNECOLOGICAL Hx Genitourinary Disorders: No - PSYCHIATRIC Hx Psychophysiologic Disorder: Yes Hx Depression: Yes Hx Substance Use: No - SURGICAL HISTORY Hx Section: Yes (x3) - ANESTHESIA Hx Anesthesia: Yes Hx Anesthesia Reactions: No Hx Malignant Hyperthermia: No Meds Allergies/Adverse Reactions: Allergies Allergy/AdvReac Type Severity Reaction Status Date / Time No Known Allergies Allergy Verified 09/12/18 12:04 Physical Exam - Constitutional Appears: Non-toxic, No Acute Distress - Head Exam Head Exam: ATRAUMATIC, NORMAL INSPECTION, NORMOCEPHALIC - Eye Exam Eye Exam: EOMI, Normal appearance - ENT Exam ENT Exam: Mucous Membranes Moist, Normal Exam - Neck Exam Neck exam: Positive for: Normal Inspection - Respiratory Exam Respiratory Exam: Clear to Auscultation Bilateral, NORMAL BREATHING PATTERN - Cardiovascular Exam Cardiovascular Exam: REGULAR RHYTHM - GI/Abdominal Exam GI & Abdominal Exam: Normal Bowel Sounds, Soft - Back Exam Back exam: NORMAL INSPECTION - Neurological Exam Neurological exam: Alert, CN II-XII Intact, Oriented x3 - Psychiatric Exam Psychiatric exam: Normal Affect, Normal Mood - Skin Skin Exam: Normal Color, Warm Results - Vital Signs Recent Vital Signs: Last Vital Signs Temp 97.8 F 09/12/18 12:00 Pulse 62 09/12/18 15:34 Resp 16 09/12/18 15:34 BP 127/74 09/12/18 15:34 Pulse Ox 99 09/12/18 15:34 - Labs Result Diagrams: 09/12/18 12:35 09/12/18 12:35 Labs: Laboratory Results - last 24 hr 09/12/18 09/12/18 09/12/18 12:35 12:35 12:35 WBC 3.9 L RBC 3.83 Hgb 11.1 L Hct 34.8 L MCV 90.9 MCH 29.0 MCHC 31.9 RDW 12.9 Plt Count 265 MPV 9.6 Neut % (Auto) 63.0 Lymph % (Auto) 30.0 Archer % (Auto) 6.2 H Eos % (Auto) 0.5 L Baso % (Auto) 0.3 Lymph # (Auto) 1.2 Archer # (Auto) 0.2 Eos # (Auto) 0.0 Baso # (Auto) 0.01 Absolute Neuts (auto) 2.44 PT 11.4 INR 1.01 APTT 31.7 Sodium 140 Potassium 4.2 Chloride 105 Carbon Dioxide 27 Anion Gap 12 BUN 9 Creatinine 0.8 Est GFR ( Amer) > 60 Est GFR (Non-Af Amer) > 60 Random Glucose 87 Calcium 9.0 Total Bilirubin 0.4 AST 26 ALT 36 Alkaline Phosphatase 76 Total Protein 7.0 Albumin 3.9 Globulin 3.1 Albumin/Globulin Ratio 1.2 Assessment & Plan - Assessment and Plan (Free Text) Assessment: Patient is a 48 [place] F with a past medical history of depression and anxiety with complaints of productive cough with streaks of blood who presents after 2 weeks of coughing. Plan: Productive cough with blood tined sputum -Most likely bronchitis however R/o TB -Infectious disease consulted -AFB Sputum cultures ordered -Isolation -r/o HIV -ESR, CRP ordered DVT ppx: Lovenox Case discussed with Dr. Johnson <Martin Johnson - Last Filed: 09/13/18 11:39> Results - Vital Signs Recent Vital Signs: Last Vital Signs Temp 97.8 F 09/12/18 12:00 Pulse 70 09/13/18 03:03 Resp 18 09/13/18 03:03 BP 154/74 H 09/13/18 03:03 Pulse Ox 98 09/13/18 03:03 - Labs Result Diagrams: 09/13/18 07:00 09/13/18 07:00 Labs: Laboratory Results - last 24 hr 09/12/18 09/12/18 09/12/18 12:35 12:35 12:35 WBC 3.9 L RBC 3.83 Hgb 11.1 L Hct 34.8 L MCV 90.9 MCH 29.0 MCHC 31.9 RDW 12.9 Plt Count 265 MPV 9.6 Neut % (Auto) 63.0 Lymph % (Auto) 30.0 Archer % (Auto) 6.2 H Eos % (Auto) 0.5 L Baso % (Auto) 0.3 Lymph # (Auto) 1.2 Archer # (Auto) 0.2 Eos # (Auto) 0.0 Baso # (Auto) 0.01 Absolute Neuts (auto) 2.44 ESR PT 11.4 INR 1.01 APTT 31.7 Sodium 140 Potassium 4.2 Chloride 105 Carbon Dioxide 27 Anion Gap 12 BUN 9 Creatinine 0.8 Est GFR ( Amer) > 60 Est GFR (Non-Af Amer) > 60 Random Glucose 87 Calcium 9.0 Phosphorus Magnesium Total Bilirubin 0.4 AST 26 ALT 36 Alkaline Phosphatase 76 C-React Prot High Sens Total Protein 7.0 Albumin 3.9 Globulin 3.1 Albumin/Globulin Ratio 1.2 09/12/18 09/12/18 09/13/18 12:35 12:35 07:00 WBC 4.3 L RBC 3.83 Hgb 11.0 L Hct 34.7 L MCV 90.6 MCH 28.7 MCHC 31.7 RDW 13.0 Plt Count 252 MPV 9.8 Neut % (Auto) 59.7 Lymph % (Auto) 30.1 Archer % (Auto) 8.6 H Eos % (Auto) 1.4 L Baso % (Auto) 0.2 Lymph # (Auto) 1.3 Archer # (Auto) 0.4 Eos # (Auto) 0.1 Baso # (Auto) 0.01 Absolute Neuts (auto) 2.55 ESR 20 PT INR APTT Sodium Potassium Chloride Carbon Dioxide Anion Gap BUN Creatinine Est GFR ( Amer) Est GFR (Non-Af Amer) Random Glucose Calcium Phosphorus Magnesium Total Bilirubin AST ALT Alkaline Phosphatase C-React Prot High Sens 2.34 Total Protein Albumin Globulin Albumin/Globulin Ratio 09/13/18 07:00 WBC RBC Hgb Hct MCV MCH MCHC RDW Plt Count MPV Neut % (Auto) Lymph % (Auto) Archer % (Auto) Eos % (Auto) Baso % (Auto) Lymph # (Auto) Archer # (Auto) Eos # (Auto) Baso # (Auto) Absolute Neuts (auto) ESR PT INR APTT Sodium 140 Potassium 3.9 Chloride 106 Carbon Dioxide 26 Anion Gap 11 BUN 12 Creatinine 0.7 Est GFR ( Amer) > 60 Est GFR (Non-Af Amer) > 60 Random Glucose 97 Calcium 9.1 Phosphorus 4.4 Magnesium 1.8 Total Bilirubin 0.3 AST 25 ALT 38 Alkaline Phosphatase 78 C-React Prot High Sens Total Protein 6.7 Albumin 3.7 Globulin 3.0 Albumin/Globulin Ratio 1.2 Attending/Attestation - Attestation I have personally seen and examined this patient.: Yes I have fully participated in the care of the patient.: Yes I have reviewed all pertinent clinical information: Yes Notes (Text): 09/13/18 11:31 Patient was seen and examined with medical oncology physician. 48 [place] F with a past medical history of depression and anxiety was admitted with H/O with cough for last b2 weeks, had one episode of with strea ks of blood mixed with sputum.There is no H/O fever/chills or weight lose.Patient chest and CT chest is unremarkable for any acute lung pathology.Patient history , examination and images are not consistent with Pulmonary TB.However as she is admitted to rule out TB, we will check Patient ESR and will place patient on Respiratory isolation until seen by ID. Management plan was discussed in detail with patient. Education was provided. .
[2018-09-12 19:16] VITALS: O2SAT 98
[2018-09-12 21:31] VITALS: BP 154/74; PULSE 70; RESP 18
[2018-09-13] MEDS ORDERED: Benzocaine/Menthol (Cepacol) Lozenge MT PRN (04:10)
[2018-09-13] MEDS ORDERED: guaiFENesin DM 100 mg-10 mg/5 ml UD PO PRN (04:10)
[2018-09-13 07:45] LABS: BASO # 0.01 K/mm3 (0.0-2.0); BASO % 0.2 % (0.0-3.0); EOS # 0.1 (0.0-0.7); EOS % 1.4 % (1.5-5.0); LYMPH # 1.3 (1.2-3.4); LYMPH % 30.1 % (22.0-35.0); MEAN CELL VOLUME 90.6 fl (80.0-105.0); MEAN CORPUSCULAR HEMOGLOBIN 28.7 pg (25.0-35.0); MEAN CORPUSCULAR HGB CONC 31.7 g/dl (31.0-37.0); MEAN PLATELET VOLUME 9.8 fl (7.0-11.0); MONO # 0.4 (0.1-0.6); MONO % 8.6 % (1.0-6.0); RBC 3.83 10^6/uL (3.5-6.1); WHITE BLOOD COUNT 4.3 10^3/uL (4.5-11.0)
[2018-09-13 08:12] LABS: ALB/GLOB RATIO 1.2 (1.1-1.8); ALBUMIN 3.7 g/dL (3.0-4.8); ALT/SGPT 38 U/L (7-56); AST/SGOT 25 U/L (14-36); BLOOD UREA NITROGEN 12 mg/dL (7-21); CALCIUM 9.1 mg/dL (8.4-10.5); GFR NON-AFRICAN AMERICAN > 60
--- NOTE | 2018-09-13 09:35 | CP.PCM.DIS ---
<Darvin Bajwa - Last Filed: 09/13/18 09:45> Provider - Provider Date of Admission: 09/12/18 16:32 Attending physician: Martin Johnson MD Primary care physician: Teresa Engle DO Consults: 09/12/18 16:31 Consult [Physician Consult] Stat Comment: Consulting Provider: Shalom Joyner Consulting Physician: Shalom Joyner Reason for Consult: hemoptysis for two weeks 09/12/18 17:01 Respiratory Therapy Referral Stat Comment: Physician Instructions: please induce sputum Reason For Exam: TB r/o Time Spent in preparation of Discharge (in minutes): 30 Hospital Course - Lab Results Lab Results: Most Recent Lab Values WBC 4.3 10^3/uL (4.5-11.0) L 09/13/18 07:00 RBC 3.83 10^6/uL (3.5-6.1) 09/13/18 07:00 Hgb 11.0 g/dL (12.0-16.0) L 09/13/18 07:00 Hct 34.7 % (36.0-48.0) L 09/13/18 07:00 MCV 90.6 fl (80.0-105.0) 09/13/18 07:00 MCH 28.7 pg (25.0-35.0) 09/13/18 07:00 MCHC 31.7 g/dl (31.0-37.0) 09/13/18 07:00 RDW 13.0 % (11.5-14.5) 09/13/18 07:00 Plt Count 252 10^3/uL (120.0-450.0) 09/13/18 07:00 MPV 9.8 fl (7.0-11.0) 09/13/18 07:00 Neut % (Auto) 59.7 % (50.0-68.0) 09/13/18 07:00 Lymph % (Auto) 30.1 % (22.0-35.0) 09/13/18 07:00 Meagher % (Auto) 8.6 % (1.0-6.0) H 09/13/18 07:00 Eos % (Auto) 1.4 % (1.5-5.0) L 09/13/18 07:00 Baso % (Auto) 0.2 % (0.0-3.0) 09/13/18 07:00 Lymph # (Auto) 1.3 (1.2-3.4) 09/13/18 07:00 Meagher # (Auto) 0.4 (0.1-0.6) 09/13/18 07:00 Eos # (Auto) 0.1 (0.0-0.7) 09/13/18 07:00 Baso # (Auto) 0.01 K/mm3 (0.0-2.0) 09/13/18 07:00 Absolute Neuts (auto) 2.55 (1.4-6.5) 09/13/18 07:00 ESR 20 mm/hr (0.0-20.0) 09/12/18 12:35 PT 11.4 SECONDS (9.4-12.5) 09/12/18 12:35 INR 1.01 09/12/18 12:35 APTT 31.7 Seconds (26.9-38.3) 09/12/18 12:35 Sodium 140 mmol/L (132-148) 09/13/18 07:00 Potassium 3.9 mmol/L (3.6-5.0) 09/13/18 07:00 Chloride 106 mmol/L (98-107) 09/13/18 07:00 Carbon Dioxide 26 mmol/L (21-33) 09/13/18 07:00 Anion Gap 11 (10-20) 09/13/18 07:00 BUN 12 mg/dL (7-21) 09/13/18 07:00 Creatinine 0.7 mg/dl (0.7-1.2) 09/13/18 07:00 Est GFR ( Amer) > 60 09/13/18 07:00 Est GFR (Non-Af Amer) > 60 09/13/18 07:00 Random Glucose 97 mg/dL (70-110) 09/13/18 07:00 Calcium 9.1 mg/dL (8.4-10.5) 09/13/18 07:00 Phosphorus 4.4 mg/dL (2.5-4.5) 09/13/18 07:00 Magnesium 1.8 mg/dL (1.7-2.2) 09/13/18 07:00 Total Bilirubin 0.3 mg/dL (0.2-1.3) 09/13/18 07:00 AST 25 U/L (14-36) 09/13/18 07:00 ALT 38 U/L (7-56) 09/13/18 07:00 Alkaline Phosphatase 78 U/L (38-126) 09/13/18 07:00 C-React Prot High Sens 2.34 mg/L (1.00-3.00) 09/12/18 12:35 Total Protein 6.7 g/dL (5.8-8.3) 09/13/18 07:00 Albumin 3.7 g/dL (3.0-4.8) 09/13/18 07:00 Globulin 3.0 gm/dL 09/13/18 07:00 Albumin/Globulin Ratio 1.2 (1.1-1.8) 09/13/18 07:00 - Hospital Course Hospital Course: 48 F presented to [facility] on 09/13/18 with one day history of hemoptysis after two week history of cough. Patient did have a brother who was diagnosed with TB three years ago but otherwise denies any sick contacts, denied night sweats, denied positive PPD or other TB symptoms including fevers. CT chest and CXR in ED were negative for any cavitary lesions. ID consultation was obtained, and after conferring with them, patient was deemed stable for discharge. Patient did have a finding of leukopenia, for which HIV was ordered; the rest of this work up can be outpatient. We will follow up with patient re: her HIV results. Patient was discharged with Jono PINO and Jennifer for 5 days. She was advised to follow up with her PCP and was advised to return to the ED if her symptoms did not improve or worsened; she expressed understanding of the plan via compliance mgr service, compliance mgr #[id number] Discharge Exam - Head Exam Head Exam: ATRAUMATIC, NORMAL INSPECTION, NORMOCEPHALIC - Eye Exam Eye Exam: EOMI, Normal appearance, PERRL Pupil Exam: NORMAL ACCOMODATION, PERRL - Respiratory Exam Respiratory Exam: Clear to PA & Lateral, NORMAL BREATHING PATTERN, UNREMARKABLE - Cardiovascular Exam Cardiovascular Exam: REGULAR RHYTHM, RRR, +S1, +S2. absent: Rubs, Systolic Murmur - GI/Abdominal Exam GI & Abdominal Exam: Normal Bowel Sounds - Extremities Exam Extremities exam: normal capillary refill - Neurological Exam Neurological exam: Alert, CN II-XII Intact, Normal Gait, Oriented x3, Reflexes Normal - Psychiatric Exam Psychiatric exam: Normal Affect, Normal Mood - Skin Skin Exam: Dry, Intact, Normal Color, Warm Discharge Plan - Discharge Medications Prescriptions: Azithromycin 250 mg PO DAILY #7 tablet Guaifenesin/Dextromethorphan [Robitussin Cough-Chest Dm Liq] 118 ml PO Q6 #14 liquid - Follow Up Plan Condition: GOOD Disposition: HOME/ ROUTINE Additional Instructions: Please follow up with your primary care provider, Ms. Engle, in 5-7 days Please follow up with your doctor for your laboratory results including HIV. Please take your new medication, Robitussin DM, as directed If your symptoms get worse, please return to the ED Referrals: Teresa Engle DO [Primary Care Provider] - <Martin Johnson - Last Filed: 09/13/18 11:43> Provider - Provider Date of Admission: 09/12/18 16:32 Attending physician: Martin Johnson MD Primary care physician: Teresa Engle DO Consults: 09/12/18 16:31 Consult [Physician Consult] Stat Comment: Consulting Provider: Shalom Joyner Consulting Physician: Shalom Joyner Reason for Consult: hemoptysis for two weeks 09/12/18 17:01 Respiratory Therapy Referral Stat Comment: Physician Instructions: please induce sputum Reason For Exam: TB r/o Hospital Course - Lab Results Lab Results: Most Recent Lab Values WBC 4.3 10^3/uL (4.5-11.0) L 09/13/18 07:00 RBC 3.83 10^6/uL (3.5-6.1) 09/13/18 07:00 Hgb 11.0 g/dL (12.0-16.0) L 09/13/18 07:00 Hct 34.7 % (36.0-48.0) L 09/13/18 07:00 MCV 90.6 fl (80.0-105.0) 09/13/18 07:00 MCH 28.7 pg (25.0-35.0) 09/13/18 07:00 MCHC 31.7 g/dl (31.0-37.0) 09/13/18 07:00 RDW 13.0 % (11.5-14.5) 09/13/18 07:00 Plt Count 252 10^3/uL (120.0-450.0) 09/13/18 07:00 MPV 9.8 fl (7.0-11.0) 09/13/18 07:00 Neut % (Auto) 59.7 % (50.0-68.0) 09/13/18 07:00 Lymph % (Auto) 30.1 % (22.0-35.0) 09/13/18 07:00 Meagher % (Auto) 8.6 % (1.0-6.0) H 09/13/18 07:00 Eos % (Auto) 1.4 % (1.5-5.0) L 09/13/18 07:00 Baso % (Auto) 0.2 % (0.0-3.0) 09/13/18 07:00 Lymph # (Auto) 1.3 (1.2-3.4) 09/13/18 07:00 Meagher # (Auto) 0.4 (0.1-0.6) 09/13/18 07:00 Eos # (Auto) 0.1 (0.0-0.7) 09/13/18 07:00 Baso # (Auto) 0.01 K/mm3 (0.0-2.0) 09/13/18 07:00 Absolute Neuts (auto) 2.55 (1.4-6.5) 09/13/18 07:00 ESR 20 mm/hr (0.0-20.0) 09/12/18 12:35 PT 11.4 SECONDS (9.4-12.5) 09/12/18 12:35 INR 1.01 09/12/18 12:35 APTT 31.7 Seconds (26.9-38.3) 09/12/18 12:35 Sodium 140 mmol/L (132-148) 09/13/18 07:00 Potassium 3.9 mmol/L (3.6-5.0) 09/13/18 07:00 Chloride 106 mmol/L (98-107) 09/13/18 07:00 Carbon Dioxide 26 mmol/L (21-33) 09/13/18 07:00 Anion Gap 11 (10-20) 09/13/18 07:00 BUN 12 mg/dL (7-21) 09/13/18 07:00 Creatinine 0.7 mg/dl (0.7-1.2) 09/13/18 07:00 Est GFR ( Amer) > 60 09/13/18 07:00 Est GFR (Non-Af Amer) > 60 09/13/18 07:00 Random Glucose 97 mg/dL (70-110) 09/13/18 07:00 Calcium 9.1 mg/dL (8.4-10.5) 09/13/18 07:00 Phosphorus 4.4 mg/dL (2.5-4.5) 09/13/18 07:00 Magnesium 1.8 mg/dL (1.7-2.2) 09/13/18 07:00 Total Bilirubin 0.3 mg/dL (0.2-1.3) 09/13/18 07:00 AST 25 U/L (14-36) 09/13/18 07:00 ALT 38 U/L (7-56) 09/13/18 07:00 Alkaline Phosphatase 78 U/L (38-126) 09/13/18 07:00 C-React Prot High Sens 2.34 mg/L (1.00-3.00) 09/12/18 12:35 Total Protein 6.7 g/dL (5.8-8.3) 09/13/18 07:00 Albumin 3.7 g/dL (3.0-4.8) 09/13/18 07:00 Globulin 3.0 gm/dL 09/13/18 07:00 Albumin/Globulin Ratio 1.2 (1.1-1.8) 09/13/18 07:00 Attending/Attestation - Attestation I have personally seen and examined this patient.: Yes I have fully participated in the care of the patient.: Yes I have reviewed all pertinent clinical information, including history, physical exam and plan: Yes Notes (Text): 09/13/18 11:41 Patient was seen and examined with medical radiation tech. 48 [place] F with a past medical history of depression and anxiety was admitted with H/O with cough for last b2 weeks, had one episode of with streaks of blood mixed with sputum.There is no H/O fever/chills or weight lose.Patient chest and CT chest is unremarkable for any acute lung pathology.Patient history , examination and images are not consistent with Pulmonary TB.ESR is normal.Patient is afebrile.There is no cough since hospitalization.Patient was evaluated by ID and Isolation has been discontinued.She will be discharged home on oral Azithromycin and will follow up with PCP. Management plan was discussed in detail with patient. Education was provided.
[2018-09-13] MEDS ORDERED: Enoxaparin 40 mg Syringe SC SCH (10:00)
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
[2018-09-13 13:52] LABS: PH,URINE 6.5 (4.7-8.0); URINE APPEARANCE CLEAR (CLEAR); URINE BILIRUBIN NEGATIVE (NEGATIVE); URINE BLOOD NEGATIVE (NEGATIVE); URINE COLOR YELLOW (YELLOW); URINE GLUCOSE (UA) NEGATIVE (NEGATIVE); URINE LEUKOCYTE ESTERASE NEGATIVE Leu/uL (NEGATIVE); URINE PROTEIN NEGATIVE mg/dL (<30 mg/dL); URINE UROBILINOGEN 0.2 E.U./dL (<1 E.U./dL)
== END 2018-09-13 14:35 | disposition home or self-care (01) ==
LOC: ED 11:48 → ERH 16:32 → INTOOBSV 16:32 → ERH 09-13 02:18 → 5RSO 09-13 03:50
PROVIDERS: ADMIT Internal Medicine; ATTEND Internal Medicine
DX: R04.2 Hemoptysis (principal); D72.819 Decreased white blood cell count, unspecified; D64.9 Anemia, unspecified; F43.10 Post-traumatic stress disorder, unspecified; F32.89 Other specified depressive episodes; F41.9 Anxiety disorder, unspecified; Z83.6 Family history of other diseases of the respiratory system; Z98.891 History of uterine scar from previous surgery; E66.9 Obesity, unspecified; Z68.33 Body mass index [BMI] 33.0-33.9, adult; Z90.49 Acquired absence of other specified parts of digestive tract
CPT/HCPCS: 36415; 71046; 71260; 80053; 81003; 81025; 83735; 84100; 85025; 85610; 85651; 85730; 86140; 87116; 87206; 87389; 99284; G0378; J1650; Q9967